=== PATIENT | male | born 1970 | race Two or more races ===

== ENCOUNTER 2024-01-10 08:08 | Emergency (ER) | payer OTHER ==
[~2024-01-10] VITALS: Ht 177.8 cm; Wt 91.6 kg
== END 2024-01-10 10:47 | disposition home or self-care (01) ==
LOC: ER 08:08
DX: J00 Acute nasopharyngitis [common cold] (principal)

== ENCOUNTER 2024-01-17 07:04 | Emergency (ER) | payer OTHER ==
[~2024-01-17] VITALS: Ht 177.8 cm; Wt 91.6 kg
[2024-01-17] MEDS ORDERED: KETOROLAC TROMETHAMINE 60 MG VIAL IM ONE (08:30)
[2024-01-18] MEDS ORDERED: NEURONTIN300 MG PO (15:29)
[2024-01-18] MEDS ORDERED: KETO10TA2 PO (18:11)
[2024-01-18] MEDS ORDERED: CYCLOBENZAPRINE10 MG PO (18:11)
== END 2024-01-17 10:54 | disposition home or self-care (01) ==
LOC: ER 07:04
DX: M54.9 Dorsalgia, unspecified (principal)
CPT/HCPCS: 72131; 96372; 99284; J1885

== ENCOUNTER 2024-01-18 14:56 | Emergency (ER) | payer OTHER ==
[~2024-01-18] VITALS: Ht 177.8 cm; Wt 90.7 kg
[2024-01-18] MEDS ORDERED: NEURONTIN300 MG PO (15:29)
[2024-01-18] MEDS ORDERED: KETOROLAC TROMETHAMINE 30 MG VIAL IM STA (17:57)
[2024-01-18] MEDS ORDERED: ORPHENADRINE CITRATE 30 MG/ML AMPUL IM STA (17:57)
[2024-01-18] MEDS ORDERED: KETO10TA2 PO (18:11)
[2024-01-18] MEDS ORDERED: CYCLOBENZAPRINE10 MG PO (18:11)
== END 2024-01-18 18:29 | disposition home or self-care (01) ==
LOC: ER 14:56
DX: M54.9 Dorsalgia, unspecified (principal); M54.50 Low back pain, unspecified
CPT/HCPCS: 96372; 99282; J1885; J2360

== ENCOUNTER 2024-02-03 17:29 | Emergency (ER) | payer OTHER ==
[~2024-02-03] VITALS: Ht 175.3 cm; Wt 76.2 kg
[~2024-02-03 17:29] MED LIST: CYCLOBENZAPRINE10 MG PO; KETO10TA2 PO; NEURONTIN300 MG PO
[2024-02-03] MEDS ORDERED: FAMOTIDINE/PF 20 MG in 0.9 % SODIUM CHLORIDE 8 ML IV PUSH STA (18:03)
[2024-02-03] MEDS ORDERED: 0.9 % SODIUM CHLORIDE 1,000 ML IV SCH (18:15)
[2024-02-03] MEDS ORDERED: ONDANSETRON HCL 2 MG/ML VIAL IV ONE (18:15)
[2024-02-03 18:45] LABS: HEMATOCRIT 46.2 % (39.0-48.0); HEMOGLOBIN 15.9 g/dL (13-16.00); MEAN CELL VOLUME 89.2 fL (80.0-100.00); MEAN CORPUSCULAR HEMOGLOBIN 30.6 pg (27.00-32.0); MEAN CORPUSCULAR HGB CONC 34.3 g/dl (32.0-36.0); RED BLOOD COUNT 5.18 M/uL (4.00-6.00); RED CELL DISTRIBUTION WIDTH 13.2 % (11.5-14.5)
[2024-02-03 19:01] LABS: ALBUMIN 3.3 gm/dL (3.4-5.0); BILIRUBIN TOTAL 0.82 mg/dL (0.3-1.2); CALCIUM 8.8 mg/dL (8.5-10.1); CREATININE SERUM 1.2 mg/dL (0.70-1.30); GFR 62.86; GLOBULINA 4.4 G/DL (2.4-3.5); POTASSIUM 4.15 mEq/L (3.5-5.1); TOTAL PROTEIN 7.7 gm/dL (6.4-8.2)
[2024-02-03 19:50] LABS: PLATELET COUNT 90 K/uL (150-450)
== END 2024-02-03 21:18 | disposition home or self-care (01) ==
LOC: ER 17:30
PROVIDERS: General Practice
DX: A90 Dengue fever [classical dengue] (principal); Z20.822 Contact with and (suspected) exposure to COVID-19

== ENCOUNTER → 2024-10-26 | Emergency (ER) | payer OTHER ==
[~2024-10-26] VITALS: Ht 175.3 cm; Wt 97.1 kg
[~2024-10-26] MED LIST changes: +CEFTRIAXONE SODIUM 1,000 MG VIAL IM ONE; +CIPRO500 MG PO; +SILVADENE20 GM TOP; +SILVER SULFADIAZINE 50 GM JAR TOP ONE
== END | disposition home or self-care (01) ==
LOC: ER 13:27
DX: T23.241A Burn of second degree of multiple right fingers (nail), including thumb, initial encounter (principal); X08.8XXA Exposure to other specified smoke, fire and flames, initial encounter; Y93.89 Activity, other specified; Y92.89 Other specified places as the place of occurrence of the external cause; Y99.8 Other external cause status

== ENCOUNTER 2024-11-29 18:41 | Emergency (ER) | payer OTHER ==
[~2024-11-29] VITALS: Ht 175.3 cm; Wt 90.7 kg
[~2024-11-29 18:41] MED LIST changes: -CEFTRIAXONE SODIUM 1,000 MG VIAL IM ONE; -SILVER SULFADIAZINE 50 GM JAR TOP ONE
[2024-11-29] MEDS ORDERED: KETOROLAC TROMETHAMINE 60 MG VIAL IM ONE ×2 (21:15)
== END 2024-11-30 00:04 | disposition left against medical advice (07) ==
LOC: ER
DX: Z53.21 Procedure and treatment not carried out due to patient leaving prior to being seen by health care provider (principal)

== ENCOUNTER 2025-06-08 19:05 | Emergency (ER) | payer OTHER ==
[~2025-06-08] VITALS: Ht 175.3 cm; Wt 90.7 kg
[2025-06-08 20:28] VITALS: BP 100/67; O2SAT 99
[2025-06-08] MEDS ORDERED: KETOROLAC TROMETHAMINE 30 MG VIAL IM STA (20:38)
== END 2025-06-08 22:04 | disposition home or self-care (01) ==
LOC: ER 19:05
DX: M25.562 Pain in left knee (principal)

== ENCOUNTER 2025-06-09 20:12 | Emergency (ER) | payer OTHER ==
[~2025-06-09] VITALS: Ht 175.3 cm; Wt 90.7 kg
[2025-06-09 20:25] VITALS: BP 121/75
[2025-06-09] MEDS ORDERED: ORPHENADRINE CITRATE 30 MG/ML AMPUL IM ONE (21:00)
[2025-06-09] MEDS ORDERED: TRAMADOL HCL 50 MG TABLET PO ONE (21:30)
[2025-06-10] MEDS ORDERED: TRAMADOL HCL 50 MG TABLET PO ONE (02:15)
[2025-06-10 03:46] VITALS: O2SAT 100
== END 2025-06-10 03:47 | disposition home or self-care (01) ==
LOC: ER 20:12
DX: M25.561 Pain in right knee (principal)

== ENCOUNTER 2025-06-24 10:07 | Emergency (ER) | payer OTHER ==
[~2025-06-24] VITALS: Ht 175.3 cm; Wt 90.7 kg
[2025-06-24] MEDS ORDERED: KETOROLAC TROMETHAMINE 60 MG VIAL IM STA (11:53)
[2025-06-24 12:17] LABS: BASO % 0.9 % (0.1-1.2); EOS # 0.34 (0.04-0.54); EOS % 3.9 % (0.7-7.0); LYMPH # 2.19 (1.18-3.74); LYMPH % 24.8 % (19.3-53.1); MEAN PLATELET VOLUME 9.40 fl (9.4-12.4); MONO # 1.07 (0.24-0.82); NEUT # 5.13 (1.56-6.13); NEUT % 58.1 % (34.0-71.1); RED CELL DISTRIBUTION WIDTH 11.9 % (11.6-14.4)
[2025-06-24 12:19] LABS: MONO % 12.1 % (4.7-12.5)
[2025-06-24 12:37] LABS: ERYTHROCYTE SEDIMENTATION RATE 30 mm/hr (0-20)
[2025-06-24 12:44] LABS: ALT/SGPT 40.0 U/L (12-78); AST/SGOT 27.0 U/L (15-37); BILIRUBIN TOTAL 0.5 mg/dL (0.3-1.2); BUN CREA RATIO 16.0 (7.0-25.0); CREATININE SERUM 0.92 mg/dL (0.70-1.30); GFR 85.1; GLOBULINA 3.9 G/DL (2.4-3.5); GLUCOSE FASTING 84.0 mg/dL (65-100); OSMOLALITY SERUM 279.0 MOSM/KG (275-295)
== END 2025-06-24 13:55 | disposition home or self-care (01) ==
LOC: ER 10:07
PROVIDERS: General Practice
DX: M25.562 Pain in left knee (principal)
CPT/HCPCS: 36415; 96372; 99282; J1885

== ENCOUNTER 2025-06-29 10:02 | Emergency (ER) | payer OTHER ==
[~2025-06-29] VITALS: Ht 175.3 cm; Wt 90.7 kg
[2025-06-29] MEDS ORDERED: KETOROLAC TROMETHAMINE 30 MG VIAL IM STA (10:18)
[2025-06-29] MEDS ORDERED: KETOROLAC TROMETHAMINE 30 MG VIAL ONE (10:21)
== END 2025-06-29 10:35 | disposition home or self-care (01) ==
LOC: ER 10:02
DX: M25.562 Pain in left knee (principal)
CPT/HCPCS: 96372; 99282; J1885

== ENCOUNTER 2025-07-04 11:30 | Emergency (ER) | payer OTHER ==
[~2025-07-04] VITALS: Ht 175.3 cm; Wt 93.0 kg
[2025-07-04] MEDS ORDERED: ORPHENADRINE CITRATE 30 MG/ML AMPUL IV STA (12:42)
[2025-07-04] MEDS ORDERED: KETOROLAC TROMETHAMINE 60 MG VIAL IM STA (12:43)
== END 2025-07-05 08:05 | disposition left against medical advice (07) ==
LOC: ER 11:30
DX: Z53.21 Procedure and treatment not carried out due to patient leaving prior to being seen by health care provider (principal)

== ENCOUNTER 2025-11-08 15:06 | Emergency (ER) | payer OTHER ==
[~2025-11-08] VITALS: Ht 175.3 cm; Wt 83.9 kg
[2025-11-08] MEDS ORDERED: DEXAMETHASONE SODIUM PHOSPHATE 4 MG/ML VIAL IM STA (15:38)
[2025-11-08] MEDS ORDERED: KETOROLAC TROMETHAMINE 60 MG VIAL IM STA (15:38)
[2025-11-08] MEDS ORDERED: ORPHENADRINE CITRATE 30 MG/ML AMPUL IM STA (15:38)
[2025-11-08] MEDS ORDERED: KETOROLAC TROMETHAMINE 60 MG VIAL IM ONE (15:51)
[2025-11-08] MEDS ORDERED: DEXAMETHASONE SODIUM PHOSPHATE 4 MG/ML VIAL ONE (15:51)
[2025-11-08] MEDS ORDERED: ORPHENADRINE CITRATE 30 MG/ML AMPUL ONE (15:51)
[2025-11-08] MEDS ORDERED: KETO10TA2 PO (17:46)
[2025-11-08] MEDS ORDERED: METAXALONE800 MG PO (17:46)
[2025-11-08] MEDS ORDERED: MEDROLPACK PO (17:46)
== END 2025-11-08 17:55 | disposition home or self-care (01) ==
LOC: ER 15:06
DX: M54.31 Sciatica, right side (principal)
CPT/HCPCS: 72100; 96365; 99283; J1100; J1885; J2360